=== PATIENT | female | born 1970 | race Caucasian/White ===

== ENCOUNTER 2021-05-06 12:00 | Emergency (ER) | payer OTHER ==
[~2021-05-06] VITALS: Ht 149.9 cm; Wt 100.0 kg
[2021-05-06 13:03] LABS: BASO % 0.3 % (0.0-1.0); EOS % 0.1 % (0.0-3.0); HEMATOCRIT 41.2 % (36.0-47.0); HEMOGLOBIN 13.3 g/dl (12.0-15.5); LYMPH # 1.2 10^3/uL (1.5-5.0); LYMPH % 8.4 % (24.0-44.0); MEAN CORPUSCULAR HEMOGLOBIN 30.1 pg (27.0-33.0); MEAN CORPUSCULAR HGB CONC 32.3 g/dl (32.0-36.5); MEAN CORPUSCULAR VOLUME 93.2 fl (80.0-96.0); MONO # 0.9 10^3/uL (0.0-0.8); NEUTROPHILS # 11.5 10^3/uL (1.5-8.5); NEUTROPHILS % 81.3 % (36.0-66.0); PLATELET COUNT, AUTOMATED 371 10^3/uL (150-450); RED BLOOD COUNT 4.42 10^6/uL (4.00-5.40); WHITE BLOOD COUNT 14.1 10^3/uL (4.0-10.0)
[2021-05-06 13:36] LABS: BLOOD UREA NITROGEN 19 MG/DL (7-18); CALCIUM LEVEL 9.6 MG/DL (8.5-10.1); CARBON DIOXIDE LEVEL 27 MEQ/L (21-32); CHLORIDE LEVEL 106 MEQ/L (98-107); CREATININE FOR GFR 0.74 MG/DL (0.55-1.30); GLOMERULAR FILTRATION RATE > 60.0 (>58); GLUCOSE, FASTING 106 MG/DL (70-100); POTASSIUM SERUM 4.4 MEQ/L (3.5-5.1); SODIUM LEVEL 142 MEQ/L (136-145)
[2021-05-06] MEDS ORDERED: PANTOPRAZOLE 40MG VIAL (C9113 PER 1) IV ONE (14:35)
[2021-05-06] MEDS ORDERED: METOCLOPRAMIDE INJ 10MG/2ML VIAL (J2765 PER 1) IV ONE (14:40)
[2021-05-06] MEDS ORDERED: ACETAMINOPHEN 500 MG TAB PO ONE (14:40)
[2021-05-06] MEDS ORDERED: NS 1,000 ML IV ONE (14:40)
[2021-05-06] MEDS ORDERED: diphenhydrAMINE 50MG/ML VIAL (J1200) IV ONE (14:40)
[2021-05-06] MEDS ORDERED: ISOVUE-370 76% 100ML VIAL As Ordered ONE (14:46)
[2021-05-06 14:55] LABS: ALBUMIN 4.4 GM/DL (3.2-5.2); ALT/SGPT 30 U/L (12-78); BILIRUBIN,DIRECT 0.1 MG/DL (0.0-0.2); BILIRUBIN,TOTAL 0.6 MG/DL (0.2-1.0); LIPASE 466 U/L (73-393); TOTAL PROTEIN 7.6 GM/DL (6.4-8.2)
--- NOTE | 2021-05-06 15:31 | REP ---
INDICATION: rectal bleeding, hyster in march with bowel injury, NSAID use. COMPARISON: None. TECHNIQUE: Standard helical technique after the intravenous administration of 100 cc Isovue 370. No oral bowel preparatory contrast was administered prior to the exam. This causes exam limitations. FINDINGS: The lung bases are clear. The liver, gallbladder, spleen, pancreas, adrenal glands, and left kidney are within normal limits. Seen in the superior pole the right kidney there is a round 4 points 4 cm sized low-density smoothly marginated structure which has slightly higher density than water. Just inferior to this in the renal sinus region there is an additional round 1.5 cm sized structure having similar imaging characteristics. There are no enhancing renal masses. The abdominal aorta para-aortic regions are within normal limits. There is no free fluid or free air in the abdomen or pelvis. There is no evidence of a mass or adenopathy. Limited evaluation of the bowel loops and the mesenteries show no abnormalities. Bone window technique throughout the exam shows the osseous structures to be within normal limits. Seen along the inferior abdominal wall at the level low pelvis confined to the adipose tissue there is slight irregular increased soft tissue density. The left-sided component of this is somewhat more organized measuring approximately 4 x 1.5 cm and having slightly higher than water density Hounsfield unit readings. IMPRESSION: 1. 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 I have been given history that the patient has had a hysterectomy last month. Correlate clinically. 1. Two Bosniak class 1 right renal cysts as described above <Electronically signed by Kareem Dorado > 05/06/21 [id number]
[2021-05-06] MEDS ORDERED: METO50TA7 PO (16:14)
[2021-05-06] MEDS ORDERED: AMLO25TA PO (16:14)
[2021-05-06] MEDS ORDERED: SPIR-10 PO (16:14)
[2021-05-06 17:23] VITALS: BP 150/85
== END 2021-05-06 17:26 | disposition home or self-care (01) ==
LOC: M ED 12:00
DX: K62.5 Hemorrhage of anus and rectum (principal); R51.9 Headache, unspecified; N28.1 Cyst of kidney, acquired; I10 Essential (primary) hypertension
CPT/HCPCS: 36415; 74177; 80048; 80076; 81001; 83690; 85025; 86850; 86900; 86901; 87210; 96361; 96374; 96375; 99284; C9113; J1200; J2765; Q9967

== ENCOUNTER → 2022-06-08 | Outpatient (REF) ==
[~2022-06-08] MED LIST: AMLO25TA PO; METO50TA7 PO; SPIR-10 PO
== END ==
LOC: M PLAIMG 15:57
PROVIDERS: ATTEND Internal Medicine
DX: M16.0 Bilateral primary osteoarthritis of hip (principal); M17.12 Unilateral primary osteoarthritis, left knee